=== PATIENT | male | born 1995 | race Asian ===

== ENCOUNTER 2016-08-27 06:34 | Emergency (ER) | payer BC, OTHER ==
[~2016-08-27] VITALS: Ht 180.3 cm; Wt 67.3 kg
[2016-08-27 06:42] VITALS: TEMP 37; Ht 180.3 cm; Wt 67.3 kg
[2016-08-27 06:54] VITALS: O2SAT 97
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
[2016-08-27 07:34] LABS: BASO % 0.2 %; BASO ABS # 0.02 K/uL (0-0.2); COMPLETE YES; EOS % 0.1 %; HEMATOCRIT 47.8 % (42-52); IG% 0.2 %; LYMPH % 6.3 %; LYMPH ABS # 0.66 K/uL (1.2-3.4); MEAN CELL VOLUME 86.1 fL (80-100); MEAN CORPUSCULAR HEMOGLOBIN 27.4 pg (25-34); MEAN CORPUSCULAR HGB CONC 31.8 g/dl (32-36); MEAN PLATELET VOLUME 9.8 fL (7.4-10.4); MONO % 3.8 %; NEUT % 89.4 %; PLATELET COUNT 232 K/uL (130-400); RED BLOOD COUNT 5.55 M/uL (4.7-6.1); WHITE BLOOD COUNT 10.48 K/uL (4.8-10.8)
--- NOTE | 2016-08-27 07:42 | DIAGNOSTIC IMAGING REPORT ---
CT OF THE HEAD WITHOUT CONTRAST CLINICAL HISTORY: Confusion. COMPARISON STUDY: No previous studies for comparison. CT DOSE: 1074.96 mGy.cm TECHNIQUE: Helical axial images of the head were obtained without IV contrast. Automated exposure control was utilized for the study. A dose lowering technique was utilized adhering to the principles of ALARA. FINDINGS: No acute intracranial hemorrhage, midline shift or mass effect is present. Ventricular system is normal. Basilar cisterns are patent. There are no extra-axial collections. Akers-white differentiation is maintained. There are no findings to suggest acute dural sinus thrombosis or acute territorial infarct. There are no calvarial fracture. Visualized portions of the sinuses and mastoid air cells are clear. IMPRESSION: No acute intracranial findings. Electronically signed by: Slade Cervantes M.D. 08/27/2016 7:41 AM Dictated Date/Time: 08/27/2016 7:39 AM
[2016-08-27 07:54] LABS: BUN/CREATININE RATIO 9.9 (10-20); CALCIUM 9.2 mg/dl (8.5-10.1); CREATININE 1.1 mg/dl (0.60-1.40); POTASSIUM 4.6 mmol/L (3.5-5.1)
[2016-08-27 09:13] LABS: BENZODIAZEPINE, URINE NEG (NEG); COCAINE,URINE NEG (NEG); PHENCYCLIDINE, URINE NEG (NEG)
[2016-08-27 10:56] VITALS: BP 139/73; PULSE 58; O2SAT 100
== END 2016-08-27 11:14 | disposition home or self-care (01) ==
LOC: EDBD 06:34 → C.EDB 06:36
DX: R41.82 Altered mental status, unspecified (principal)

== ENCOUNTER 2016-11-03 22:27 | Emergency (ER) | payer BC ==
[~2016-11-03] VITALS: Ht 180.3 cm; Wt 76.9 kg
[2016-11-03 22:34] VITALS: BP 157/85; PULSE 93; TEMP 36.9; O2SAT 94; Ht 180.3 cm; Wt 76.9 kg
[2016-11-03] MEDS ORDERED: IBUPROFEN 600 MG TAB PO STA (22:34)
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
== END 2016-11-03 23:04 | disposition home or self-care (01) ==
LOC: EDBD 22:27 → C.EDA 22:28
DX: S43.015A Anterior dislocation of left humerus, initial encounter (principal); W50.0XXA Accidental hit or strike by another person, initial encounter